=== PATIENT | female | born 1990 | race Caucasian/White ===

== ENCOUNTER 2018-01-27 00:25 | Emergency (ER) | payer MEDICAID, OTHER ==
[~2018-01-27] VITALS: Ht 154.9 cm; Wt 92.0 kg
[~2018-01-27 00:25] MED LIST: KEPP500 PO; PHEN100C4 PO
[2018-01-27 00:39] VITALS: BP 100/67
== END 2018-01-27 03:28 | disposition left against medical advice (07) ==
LOC: ER 00:49
DX: Z53.21 Procedure and treatment not carried out due to patient leaving prior to being seen by health care provider (principal)
CPT/HCPCS: 81025